=== PATIENT | female | born 1945 | race Caucasian/White ===

== ENCOUNTER 2018-01-03 18:31 | Emergency (ER) | payer OTHER ==
[2018-01-03 19:25] LABS: ADD MAN DIFF? NO
[2018-01-03 19:26] LABS: ABNORMAL IP MESSAGE 1; BASOPHIL # 0.1 10^3/ul (0.0-0.1); BASOPHILS % 0.3 % (0.0-2.0); EOSINOPHILS # 0.1 10^3/ul (0.0-0.5); EOSINOPHILS % 0.3 % (0.0-7.0); HEMATOCRIT 35.3 % (37.0-47.0); HEMOGLOBIN 11.6 g/dl (12.0-16.0); LYMPHOCYTES % 9.9 % (15.0-51.0); MEAN CORPUSCULAR HEMOGLOBIN 28.7 pg (29.0-33.0); MEAN CORPUSCULAR HGB CONC 32.9 g/dl (32.0-37.0); MEAN CORPUSCULAR VOLUME 87.4 fl (82.0-101.0); MEAN PLATELET VOLUME 9.2 fl (7.4-10.4); MONOCYTE # 1.6 10^3/ul (0.3-0.9); MONOCYTES % 8.3 % (0.0-11.0); NEUTROPHIL # 15.9 10^3/ul (1.6-7.5); NEUTROPHILS % 80.2 % (39.0-77.0); PLATELET COUNT 547 10^3/UL (140-415); RED BLOOD COUNT 4.04 10^6/ul (4.20-5.40); RED CELL DISTRIBUTION WIDTH 16.5 % (11.5-14.5)
[2018-01-03 19:26] LABS: WHITE BLOOD COUNT 19.8 10^3/ul (4.8-10.8)
[2018-01-03 19:27] LABS: POSITIVE DIFF @See below
[2018-01-03] MEDS: CEFTRIAXONE 1 GM/50 ML (PMX) 50 ML IVPB (19:37)
[2018-01-03] MEDS: ONDANSETRON 4 MG INJ IV ×2 (19:38→22:34)
[2018-01-03] MEDS: SODIUM CHLORIDE 0.9% 1L BAG IV* (19:38)
[2018-01-03] MEDS: morphine 4 MG/ML VIAL IV (19:38)
[2018-01-03 19:43] LABS: ADD UMIC YES; UR ASCORBIC ACID NEGATIVE (NEGATIVE); UR BILIRUBIN (Dip) NEGATIVE (NEGATIVE); UR BLOOD (Dip) 2+ mg/dL (NEGATIVE); UR CLARITY CLEAR (CLEAR); UR COLOR YELLOW (YELLOW); UR GLUCOSE (Dip) NEGATIVE (NEGATIVE); UR KETONES (Dip) TRACE mg/dL (NEGATIVE); UR LEUKOCYTE ESTERASE (Dip) 2+ Leu/ul (NEGATIVE); UR NITRITE (Dip) NEGATIVE (NEGATIVE); UR RBC 3 /HPF (0-5); UR TOTAL PROTEIN (Dip) NEGATIVE (NEGATIVE); UR UROBILINOGEN (Dip) NEGATIVE (NEGATIVE); UR WBC 95 /HPF (0-5)
[2018-01-03 20:07] LABS: LACTIC ACID 2.1 mmol/L (0.5-2.0)
[2018-01-03 20:11] LABS: INR 1.28; PROTIME 16.2 Sec (11.9-14.9); PT RATIO 1.3
[2018-01-03 20:43] LABS: ALANINE AMINOTRANSFERASE 15 IU/L (13-69); ALBUMIN 2.8 g/dl (3.3-4.9); ALBUMIN/GLOBULIN RATIO 0.93; ALKALINE PHOSPHATASE 120 IU/L (42-121); AMYLASE 60 U/L (11-123); ANION GAP 18 (8-16); ASPARTATE AMINO TRANSFERASE 40 IU/L (15-46); BILIRUBIN,INDIRECT 0.4 mg/dl (0-1.1); BILIRUBIN,TOTAL 0.4 mg/dl (0.2-1.3); BLOOD UREA NITROGEN 28 mg/dl (7-20); CALCIUM 9.8 mg/dl (8.4-10.2); CARBON DIOXIDE 23 mmol/L (21-31); CHLORIDE 91 mmol/L (97-110); CREATININE 1.06 mg/dl (0.44-1.00); GLUCOSE 238 mg/dl (70-220); LIPASE 65 U/L (23-300); POTASSIUM 5.1 mmol/L (3.5-5.1); SODIUM 127 mmol/L (135-144); TOTAL PROTEIN 5.8 g/dl (6.1-8.1)
[2018-01-03 20:57] LABS: TROPONIN-I < 0.012 ng/ml (0.000-0.120)
[2018-01-03 21:33] LABS: LACTIC ACID 1.5 mmol/L (0.5-2.0)
[2018-01-03] MEDS: VANCOMYCIN 1 GM (PMX) 250 ML IVPB (21:58)
[2018-01-03] MEDS: MAGNESIUM CITRATE 300 ML BTL PO (22:33)
[2018-01-03] MEDS: HYDROmorphONE 1 MG/ML SYG IV (22:34)
[2018-01-03 23:40] LABS: LACTIC ACID 0.8 mmol/L (0.5-2.0)
== END 2018-01-04 00:10 | disposition short-term general hospital (02) ==
LOC: E/R 01-04 00:10
DX: A41.9 Sepsis, unspecified organism (principal); J18.9 Pneumonia, unspecified organism; N30.00 Acute cystitis without hematuria; C55 Malignant neoplasm of uterus, part unspecified; R40.2142 Coma scale, eyes open, spontaneous, at arrival to emergency department; R40.2252 Coma scale, best verbal response, oriented, at arrival to emergency department; R40.2362 Coma scale, best motor response, obeys commands, at arrival to emergency department; Z79.4 Long term (current) use of insulin
CPT/HCPCS: 36415; 71045; 74176; 80053; 81001; 82150; 83605; 83690; 84484; 85025; 85610; 85730; 87040; 87086; 93005; 96374; 96375; 96376; 99291-25

== ENCOUNTER 2018-01-25 22:40 | Emergency (ER) | payer OTHER ==
[2018-01-25] MEDS: SODIUM CHLORIDE 0.9% 1L BAG IV* (23:30)
[2018-01-25 23:39] LABS: ADD MAN DIFF? NO
[2018-01-25 23:46] LABS: BASOPHILS % 0.2 % (0.0-2.0); EOSINOPHILS % 0.1 % (0.0-7.0); HEMATOCRIT 36.3 % (37.0-47.0); HEMOGLOBIN 11.4 g/dl (12.0-16.0); LYMPHOCYTES # 1.6 10^3/ul (0.8-2.9); LYMPHOCYTES % 11.4 % (15.0-51.0); MEAN CORPUSCULAR HEMOGLOBIN 28.4 pg (29.0-33.0); MEAN CORPUSCULAR HGB CONC 31.4 g/dl (32.0-37.0); MEAN CORPUSCULAR VOLUME 90.5 fl (82.0-101.0); MEAN PLATELET VOLUME 9.1 fl (7.4-10.4); MONOCYTE # 0.9 10^3/ul (0.3-0.9); NEUTROPHIL # 11.4 10^3/ul (1.6-7.5); NEUTROPHILS % 81.1 % (39.0-77.0); PLATELET COUNT 537 10^3/UL (140-415); RED BLOOD COUNT 4.01 10^6/ul (4.20-5.40); RED CELL DISTRIBUTION WIDTH 18.1 % (11.5-14.5)
[2018-01-25 23:46] LABS: WHITE BLOOD COUNT 14.1 10^3/ul (4.8-10.8)
[2018-01-26 00:02] LABS: LACTIC ACID 1.9 mmol/L (0.5-2.0)
[2018-01-26 00:04] LABS: ALANINE AMINOTRANSFERASE 14 IU/L (13-69); ALBUMIN 2.5 g/dl (3.3-4.9); ALBUMIN/GLOBULIN RATIO 0.78; ALKALINE PHOSPHATASE 168 IU/L (42-121); ANION GAP 12 (8-16); ASPARTATE AMINO TRANSFERASE 25 IU/L (15-46); BILIRUBIN,INDIRECT 0.2 mg/dl (0-1.1); BILIRUBIN,TOTAL 0.2 mg/dl (0.2-1.3); BLOOD UREA NITROGEN 54 mg/dl (7-20); CALCIUM 8.6 mg/dl (8.4-10.2); CARBON DIOXIDE 25 mmol/L (21-31); CHLORIDE 98 mmol/L (97-110); CREATININE 1.42 mg/dl (0.44-1.00); GLUCOSE 231 mg/dl (70-220); POTASSIUM 5.3 mmol/L (3.5-5.1); SODIUM 130 mmol/L (135-144); TOTAL PROTEIN 5.7 g/dl (6.1-8.1)
[2018-01-26 00:05] LABS: INR 1.43; PROTIME 17.7 Sec (11.9-14.9); PT RATIO 1.4
[2018-01-26 00:07] LABS: PARTIAL THROMBOPLASTIN TIME 61.5 Sec (25.0-35.0)
[2018-01-26 00:14] LABS: TROPONIN-I < 0.010 ng/ml (0.000-0.120)
[2018-01-26] MEDS: SOD CHLORIDE 0.9% 1,000 ML IV (00:56)
[2018-01-26] MEDS: CEFTRIAXONE 1 GM/50 ML (PMX) 50 ML IVPB (01:57)
[2018-01-26] MEDS: HYDROCODONE/APAP (10/325) TAB PO (02:02)
[2018-01-26] MEDS: ONDANSETRON 4 MG INJ IV (02:30)
[2018-01-26] MEDS: morphine 2 MG INJ IV (02:30)
[2018-01-26 02:52] LABS: LACTIC ACID 1.7 mmol/L (0.5-2.0)
== END 2018-01-26 07:36 | disposition short-term general hospital (02) ==
LOC: E/R 22:40
DX: E86.0 Dehydration (principal); N17.9 Acute kidney failure, unspecified; E87.5 Hyperkalemia; D64.9 Anemia, unspecified; G20 Parkinson's disease; E11.9 Type 2 diabetes mellitus without complications; Z85.41 Personal history of malignant neoplasm of cervix uteri; Z79.4 Long term (current) use of insulin
CPT/HCPCS: 36415; 71045; 80053; 83605; 84484; 85025; 85610; 85730; 87040; 93005; 96374; 96375; 99285-25